=== PATIENT | male | born 1960 | race Caucasian/White ===

== ENCOUNTER 2017-06-11 08:58 | Day surgery (SDC) | payer MEDICAID ==
[2017-06-11] MEDS ORDERED: PROPOFOL 10 MG/ML VIAL IV ONE (08:59)
[2017-06-11] MEDS ORDERED: LIDOCAINE 2% MDV (20MG/ML) 20ML VIAL IV ONE (08:59)
--- NOTE | 2017-06-12 12:40 | Operative Note ---
DATE OF SURGERY: 06/11/2017 OPERATION: COLONOSCOPY to the cecum with electrocautery snare polypectomy x1. INDICATION: Colorectal cancer screening. Family history of colon cancer in patient's father as best he recalls. ANESTHESIA: Intravenous sedation was administered by the department of anesthesiology and included Diprivan titrated to effect. PROCEDURE: Following informed consent from this alert individual including a discussion of the risks and benefits of the procedure and an opportunity for the patient to ask questions, the patient was in the left lateral decubitus position. A digital rectal examination was performed. No abnormalities were noted. Following this, the Olympus [id number] video colonoscope was inserted into the rectum without resistance. The rectal mucosa had a normal appearance with normal folds and distensibility. The colonoscope was advanced up through the colon to the level of the cecum without much difficulty. Throughout the bowel the mucosa appeared normal, the folds were normal, and the bowel was fairly well distensible. The cecum was defined by noting the appendiceal orifice and ileocecal valve. The colon preparation was good. From the base of the cecum, the colonoscope was then withdrawn. In the ascending colon near the hepatic flexure was a sessile 8-9 mm polyp. It was removed with electrocautery snare polypectomy. A white eschar was noted. There was no bleeding. The polyp was suctioned through a colonoscope into a collection trap. From this point, the colonoscope was further withdrawn. No additional changes were appreciated through the bowel upon slow withdrawal. Retroflexion in the rectum was endoscopically normal. The endoscope was straightened and removed. The patient tolerated the procedure well and was returned to the recovery area in stable condition. IMPRESSION: 1. An 8-9 mm sessile colon polyp removed from the ascending colon near the hepatic flexure with electrocautery snare. 2. Family history of colon cancer (father). RECOMMENDATIONS: Further recommendations will be forthcoming pending results of pathology obtained today. I did recommend a repeat colonoscopy in 5 years' time. Followup will also be with primary care team. As always, thank you for allowing me to participate in the care of your patient. CC: Dr. Haryr Mcdonald, [facility]
== END 2017-06-11 11:50 | disposition home or self-care (01) ==
LOC: HOP 08:58
PROVIDERS: ATTEND Internal Medicine Gastroenterology
DX: Z12.11 Encounter for screening for malignant neoplasm of colon (principal); Z80.0 Family history of malignant neoplasm of digestive organs; D12.2 Benign neoplasm of ascending colon